=== PATIENT | male | born 1970 | race American Indian/Alaskan Native ===

== ENCOUNTER 2019-03-15 17:02 | Emergency (ER) | payer OTHER ==
--- NOTE | 2019-03-15 17:12 | Emergency Department Report ---
Blank Doc - Documentation Documentation: pt presents to Ed with a hx of alcohol abuse and intoxication needing detox UDS, blood alcohol main side eval
[2019-03-15 18:10] LABS: Amphetamine Screen,Urine PRESUMPTIVE NEGATIVE; Benzodiazepines Screen,Urine PRESUMPTIVE NEGATIVE; Cocaine Screen,Urine PRESUMPTIVE NEGATIVE; Methadone Screen,Urine PRESUMPTIVE NEGATIVE; Opiate Screen,Urine PRESUMPTIVE NEGATIVE
[2019-03-15 18:31] LABS: Cannabinoid Screen,Urine PRESUMPTIVE POSITIVE
[2019-03-15] MEDS ORDERED: ATIVAN PO PRN ×2 (18:39)
[2019-03-15] MEDS ORDERED: ATIVAN IV PRN ×3 (18:39)
[2019-03-15] MEDS ORDERED: IBUPROFEN PO ONE (18:44)
--- NOTE | 2019-03-15 18:44 | Emergency Department Report ---
ED Alcohol HPI - General Chief Complaint: Alcohol Stated Complaint: DETOX Time Seen by Provider: 03/15/19 17:08 Source: patient, RN notes reviewed Mode of arrival: Ambulatory Limitations: No Limitations - History of Present Illness Initial Comments: This is a 48-year-old gentleman. The patient is not known to this provider previously. He has a history of possible arthritis and alcohol dependence. He consumes alcohol daily. He presents to the emergency room primary complaint of requesting alcohol detox. He denies other coingestions. He denies headache, neck pain, chest pain, abdominal pain, shortness of breath and urinary symptoms. Patient does heavy labor for work. He has chronic muscular skeletal bilateral hip and knee pain. He is not homicidal. He is not suicidal. He indicates that he has a lot to live for, including his children. MD Complaint: alcohol intoxication, alcohol dependence, desires rehab Last Drink: just [employer] Chronic Alcohol Use: Yes Previous Visits for Alcohol Intoxication?: No Recent Trauma: No - Related Data Home Medications Medication Instructions Recorded Confirmed Last Taken Bupropion HCl [Wellbutrin Xl] 300 mg PO QAM 05/02/14 05/02/14 05/01/14 08:00 risperiDONE [Risperdal] 2 mg PO QDAY 05/02/14 05/02/14 05/01/14 08:00 Previous Rx's Medication Instructions Recorded Last Taken Type Ibuprofen [Motrin] 800 mg PO Q8H PRN #14 tablet 05/02/14 Unknown Rx Penicillin Vk [Veetids TAB] 2 tab PO BID #40 tablet 05/02/14 Unknown Rx Ibuprofen [Motrin] 600 mg PO Q8H PRN #30 tablet 03/15/19 Unknown Rx Multivitamin with Folic Acid [Cvs 400 mcg PO QDAY #30 tablet 03/15/19 Unknown Rx One Daily Essential Tablet] Ondansetron [Zofran Odt] 4 mg PO Q8HR PRN #20 tab.rapdis 03/15/19 Unknown Rx chlordiazePOXIDE [Librium] 25 mg PO Q6H PRN #30 capsule 03/15/19 Unknown Rx Allergies Allergy/AdvReac Type Severity Reaction Status Date / Time Sulfa (Sulfonamide Allergy Swelling Verified 03/15/19 17:03 Antibiotics) ED Review of Systems ROS: Stated complaint: DETOX Other details as noted in HPI Constitutional: denies: fever Eyes: denies: eye discharge ENT: denies: epistaxis Respiratory: denies: cough Cardiovascular: denies: chest pain Genitourinary: denies: dysuria Musculoskeletal: arthralgia, myalgia Skin: denies: lesions Neurological: denies: headache, weakness Psychiatric: denies: homicidal thoughts, suicidal thoughts ED Past Medical Hx - Past Medical History Hx Psychiatric Treatment: Yes (bipolar) - Surgical History Additional Surgical History: facial reconstruction - Social History Smoking Status: Current Some Day Smoker Substance Use Type: Alcohol, Marijuana - Medications Home Medications: Home Medications Medication Instructions Recorded Confirmed Last Taken Type Bupropion HCl [Wellbutrin Xl] 300 mg PO QAM 05/02/14 05/02/14 05/01/14 08:00 History Ibuprofen [Motrin] 800 mg PO Q8H PRN #14 tablet 05/02/14 Unknown Rx Penicillin Vk [Veetids TAB] 2 tab PO BID #40 tablet 05/02/14 Unknown Rx risperiDONE [Risperdal] 2 mg PO QDAY 05/02/14 05/02/14 05/01/14 08:00 History Ibuprofen [Motrin] 600 mg PO Q8H PRN #30 tablet 03/15/19 Unknown Rx Multivitamin with Folic Acid [[facility]vs 400 mcg PO QDAY #30 tablet 03/15/19 Unknown Rx One Daily Essential Tablet] Ondansetron [Zofran Odt] 4 mg PO Q8HR PRN #20 tab.rapdis 03/15/19 Unknown Rx chlordiazePOXIDE [Librium] 25 mg PO Q6H PRN #30 capsule 03/15/19 Unknown Rx ED Physical Exam - General Limitations: No Limitations General appearance: alert, in no apparent distress - Head Head exam: Present: atraumatic, normocephalic - Eye Eye exam: Present: normal appearance, EOMI. Absent: nystagmus - ENT ENT exam: Present: normal exam, normal orophraynx, mucous membranes moist, normal external ear exam - Neck Neck exam: Present: normal inspection, full ROM. Absent: tenderness, meningismus - Respiratory Respiratory exam: Present: normal lung sounds bilaterally. Absent: respiratory distress - Cardiovascular Cardiovascular Exam: Present: regular rate, normal rhythm, normal heart sounds. Absent: bradycardia, tachycardia, irregular rhythm, systolic murmur, diastolic murmur, rubs, gallop - GI/Abdominal GI/Abdominal exam: Present: soft. Absent: distended, tenderness, rebound, rigid, pulsatile mass - Rectal Rectal exam: Present: deferred - Extremities Exam Extremities exam: Present: normal inspection, full ROM, other (2+ pulses noted in the bilateral upper, lower extremities. Compartments soft. No long bony tenderness. The pelvis is stable.). Absent: pedal edema, calf tenderness - Back Exam Back exam: Present: normal inspection, full ROM. Absent: tenderness, CVA tenderness (R), CVA tenderness (L), paraspinal tenderness, vertebral tenderness - Neurological Exam Neurological exam: Present: alert, oriented X3, normal gait, other (Extraocular movements intact. Tongue midline. No facial droop. Facial sensation intact to light touch in the V1, V2, V3 distribution bilaterally. 5 and 5 strength in 4 extremities.. Sensation is intact to light touch in 4 extremities.). Absent: motor sensory deficit - Psychiatric Psychiatric exam: Absent: homicidal ideation, suicidal ideation - Skin Skin exam: Present: warm, dry, intact, normal color. Absent: rash ED Course Vital Signs 03/15/19 03/15/19 03/15/19 17:08 19:15 20:01 Temperature 98.5 F 98.3 F Pulse Rate 125 H 96 H 89 Respiratory 18 18 12 Rate Blood Pressure 136/88 129/89 Blood Pressure 130/85 [Left] O2 Sat by Pulse 96 99 97 Oximetry 03/15/19 03/15/19 03/15/19 20:10 21:00 22:00 Temperature Pulse Rate 92 H 99 H Respiratory 18 22 13 Rate Blood Pressure 119/78 116/80 Blood Pressure [Left] O2 Sat by Pulse 98 98 Oximetry 03/15/19 03/16/19 03/16/19 23:00 00:00 01:00 Temperature Pulse Rate 84 88 85 Respiratory 14 11 L 14 Rate Blood Pressure 131/67 121/63 120/60 Blood Pressure [Left] O2 Sat by Pulse 94 95 95 Oximetry - Reevaluation(s) Reevaluation #1: 03/15/19 19:12 Differential diagnosis, including but not limited to: Alcohol dependence, medical clearance for psychiatric placement, chronic arthritis Assessment and plan: 48-year-old gentleman, does not appear to be clinically intoxicated at this time, but blood alcohol level above the legal limit for legal intoxication. He also appears to have chronic muscle skeletal pain. We will treat his pain. We will place the patient on alcohol withdrawal protocol. He does not appear to be withdrawing at this time. A psychiatric consultation has been requested. Into spit discharge with outpatient management. Tachycardia resolved. Reevaluation #2: 03/15/19 19:44 found to have rhabdomyolysis with cpk [id number] not medically clearable will admit for ivf and inpatient management Dr Luis Wills to assume care of patient ED Medical Decision Making - Lab Data Result diagrams: 03/15/19 18:41 Vital Signs 03/15/19 17:08 Temperature 98.5 F Pulse Rate 125 H Respiratory 18 Rate Blood Pressure 136/88 O2 Sat by Pulse 96 Oximetry Lab Results 03/15/19 03/15/19 Range/Units 17:19 17:56 Urine Opiates Screen Presumptive negative Urine Methadone Screen Presumptive negative Ur Barbiturates Screen Presumptive negative Ur Phencyclidine Scrn Presumptive negative Ur Amphetamines Screen Presumptive negative U Benzodiazepines Scrn Presumptive negative Urine Cocaine Screen Presumptive negative U Marijuana (THC) Screen Presumptive positive Drugs of Abuse Note Disclamer Plasma/Serum Alcohol 0.15 H (0-0.07) % Vital Signs 03/15/19 03/15/19 17:08 19:15 Temperature 98.5 F 98.3 F Pulse Rate 125 H 96 H Respiratory 18 18 Rate Blood Pressure 136/88 Blood Pressure 130/85 [Left] O2 Sat by Pulse 96 99 Oximetry Lab Results 03/15/19 03/15/19 03/15/19 Range/Units 17:19 17:56 18:41 Sodium 140 (137-145) mmol/L Potassium 4.3 (3.6-5.0) mmol/L Chloride 98.3 (98-107) mmol/L Carbon Dioxide 23 (22-30) mmol/L Anion Gap 23 mmol/L BUN 8 L (9-20) mg/dL Creatinine 0.8 (0.8-1.5) mg/dL Estimated GFR > 60 ml/min BUN/Creatinine Ratio 10 % Glucose 87 (75-100) mg/dL Calcium 9.5 (8.4-10.2) mg/dL Magnesium 2.00 (1.7-2.3) mg/dL Salicylates (2.8-20.0) mg/dL Urine Opiates Screen Presumptive negative Urine Methadone Screen Presumptive negative Acetaminophen (10.0-30.0) ug/mL Ur Barbiturates Screen Presumptive negative Ur Phencyclidine Scrn Presumptive negative Ur Amphetamines Screen Presumptive negative U Benzodiazepines Scrn Presumptive negative Urine Cocaine Screen Presumptive negative U Marijuana (THC) Screen Presumptive positive Drugs of Abuse Note Disclamer Plasma/Serum Alcohol 0.15 H (0-0.07) % 03/15/19 03/15/19 Range/Units 18:41 18:41 Sodium (137-145) mmol/L Potassium (3.6-5.0) mmol/L Chloride (98-107) mmol/L Carbon Dioxide (22-30) mmol/L Anion Gap mmol/L BUN (9-20) mg/dL Creatinine (0.8-1.5) mg/dL Estimated GFR ml/min BUN/Creatinine Ratio % Glucose (75-100) mg/dL Calcium (8.4-10.2) mg/dL Magnesium (1.7-2.3) mg/dL Salicylates < 0.3 L (2.8-20.0) mg/dL Urine Opiates Screen Urine Methadone Screen Acetaminophen < 5.0 L (10.0-30.0) ug/mL Ur Barbiturates Screen Ur Phencyclidine Scrn Ur Amphetamines Screen U Benzodiazepines Scrn Urine Cocaine Screen U Marijuana (THC) Screen Drugs of Abuse Note Plasma/Serum Alcohol (0-0.07) % - EKG Data -: EKG Interpreted by Me EKG shows normal: sinus rhythm Rate: normal - EKG Data When compared to previous EKG there are: previous EKG unavailable 03/15/19 19:34 This is a sinus rhythm. 87 bpm. Left axis deviation. Left anterior fascicular block. Low voltage/poor R-wave progression. Abnormal EKG. Not having chest pain. Not consistent with ST elevation myocardial infarction. Critical care attestation.: If time is entered above; I have spent that time in minutes in the direct care of this critically ill patient, excluding procedure time. ED Disposition Clinical Impression: Alcohol dependence, Polyarthritis, Rhabdomyolysis Disposition: OP ADMIT IP TO THIS HOSP Is pt being admited?: Yes Condition: Good Additional Instructions: Take medications as needed/directed. Discontinue, decrease alcohol consumption. Take the Librium medication as needed for sensation of alcohol withdrawal. Take the pain medication as needed for joint pain. Take the multivitamins as directed. Follow up with the primary care doctor within the next 3-4 weeks. Return to the emergency room right away with you, worsened or different symptoms, or symptoms not present on the initial emergency room evaluation. Prescriptions: Multivitamin with Folic Acid [[facility]vs One Daily Essential Tablet] 400 mcg PO QDAY #30 tablet chlordiazePOXIDE [Librium] 25 mg PO Q6H PRN #30 capsule PRN Reason: Alcohol Withdrawal Ibuprofen [Motrin] 600 mg PO Q8H PRN #30 tablet PRN Reason: Pain Ondansetron [Zofran Odt] 4 mg PO Q8HR PRN #20 tab.rapdis PRN Reason: Nausea Referrals: DAO JONAS MD [Primary Care Provider] - 3-5 Days [facility]Provider Group[facility]
[2019-03-15 19:13] LABS: BUN/Creatinine Ratio 10; Blood Urea Nitrogen 8 mg/dL (9-20); Calcium 9.5 mg/dL (8.4-10.2); Hemolysis Index 5
[2019-03-15] MEDS ORDERED: NACL 0.9% 1000 ML 1,000 ML IV ONE (19:43)
[2019-03-15] MEDS ORDERED: NACL 0.9% 1000 ML 2,000 ML IV ONE (19:43)
--- NOTE | 2019-03-15 20:23 | Event Note ---
Date: 03/15/19 48 YO Male with ETOH Intoxication and elevated CK level secondary to decreased fluid intake and resultant volume depletion. Pt treated with bicarb and IVF resuscitation. Pt is still under the influence of ETOH without evidence of withdrawl. Pt treated with [facility] protocol: IVF resuscitation, banana bag and supportive care. Pt medically optimized and back to usual state of health. Pt has good urine output. Pt discharged home and instructed to ingest at least 4 liters of water by mouth daily for the nest 5 days. Pt instructed to f/u pcp 3-5 days with repeat CK level. - General Limitations: No Limitations General appearance: alert, in no apparent distress - Head Head exam: Present: atraumatic, normocephalic - Eye Eye exam: Present: normal appearance, EOMI. Absent: nystagmus - ENT ENT exam: Present: normal exam, normal orophraynx, mucous membranes moist, normal external ear exam - Neck Neck exam: Present: normal inspection, full ROM. Absent: tenderness, meningismus - Respiratory Respiratory exam: Present: normal lung sounds bilaterally. Absent: respiratory distress - Cardiovascular Cardiovascular Exam: Present: regular rate, normal rhythm, normal heart sounds. Absent: bradycardia, tachycardia, irregular rhythm, systolic murmur, diastolic murmur, rubs, gallop - GI/Abdominal GI/Abdominal exam: Present: soft. Absent: distended, tenderness, rebound, rigid, pulsatile mass - Rectal Rectal exam: Present: deferred - Extremities Exam Extremities exam: Present: normal inspection, full ROM, other (2+ pulses noted in the bilateral upper, lower extremities. Compartments soft. No long bony tenderness. The pelvis is stable.). Absent: pedal edema, calf tenderness - Back Exam Back exam: Present: normal inspection, full ROM. Absent: tenderness, CVA tenderness (R), CVA tenderness (L), paraspinal tenderness, vertebral tenderness - Neurological Exam Neurological exam: Present: alert, oriented X3, normal gait, other (Extraocular movements intact. Tongue midline. No facial droop. Facial sensation intact to light touch in the V1, V2, V3 distribution bilaterally. 5 and 5 strength in 4 extremities.. Sensation is intact to light touch in 4 extremities.). Absent: motor sensory deficit - Psychiatric Psychiatric exam: Absent: homicidal ideation, suicidal ideation - Skin Skin exam: Present: warm, dry, intact, normal color. Absent: rash
[2019-03-15 20:57] LABS: Alanine Aminotransferase 34 units/L (7-56); Albumin 5.1 g/dL (3.9-5)
[2019-03-15] MEDS ORDERED: VITAMIN B-1 100 MG, FOLVITE 1 MG, INFUVITE 10 ML in NACL 0.9% 1000 ML 1,000 ML IV ONE (21:00)
[2019-03-15 21:25] LABS: Bilirubin,Direct < 0.2 mg/dL (0-0.2)
[2019-03-16 01:37] VITALS: BP 120/60
== END 2019-03-16 02:10 | disposition admitted as inpatient to this hospital (09) ==
LOC: ED 17:02
DX: F10.229 Alcohol dependence with intoxication, unspecified (principal); R20.9 Unspecified disturbances of skin sensation; M62.82 Rhabdomyolysis; F31.9 Bipolar disorder, unspecified; F17.200 Nicotine dependence, unspecified, uncomplicated; F12.10 Cannabis abuse, uncomplicated
CPT/HCPCS: 36415; 80048; 80076; 80307; 82550; 83735; 93005; 93010; 96361; 96365; 96366; 96375; 99283; G0480; J3411; J7030; 80320